=== PATIENT | female | born 1980 | race American Indian/Alaskan Native ===

== ENCOUNTER 2024-07-08 11:46 | Emergency (ER) | payer BC, MEDICAID ==
[2024-07-08] MEDS ORDERED: Sodium Chloride 0.9% 10 ML Syringe FLUSH PRN (11:51)
[2024-07-08 12:12] LABS: BASOPHILS PERCENT AUTO 0.2 % (0.0-1.0); EOSINOPHILS PERCENT AUTO 0.7 % (1.0-3.0); HEMATOCRIT 26.1 % (37.0-47.0); HEMOGLOBIN 8.1 g/dL (12.0-16.0); LYMPHOCYTES PERCENT AUTO 8.3 % (20.5-50.1); MEAN CORPUSCULAR HEMOGLOBIN 28.6 pg (27.0-34.0); MEAN CORPUSCULAR VOLUME 92.2 fL (80-100); MONOCYTES PERCENT AUTO 6.4 % (2-8); NEUTROPHILS PERCENT AUTO 84.4 % (42.2-75.2); PLATELET COUNT,PLT 548 10^3/uL (150-450); RED BLOOD CELL COUNT 2.83 10^6/uL (4.2-5.4)
[2024-07-08 12:17] LABS: APPEARANCE,URINE TURBID (CLEAR); BILIRUBIN,URINE NEGATIVE (NEGATIVE); COLOR,URINE YELLOW (YELLOW); GLUCOSE,URINE 500 (NEGATIVE); KETONES,URINE NEGATIVE (NEGATIVE); LEUKOCYTE ESTERASE,URINE SMALL (NEGATIVE); NITRITE,URINE NEGATIVE (NEGATIVE); OCCULT BLOOD,URINE SMALL (NEGATIVE); PH,URINE 5.5 (5.0-9.0); PROTEIN,URINE 100 (NEGATIVE); UROBILINOGEN,URINE 0.2 mg/dL (0.2-1.0)
[2024-07-08 12:22] LABS: AMPHETAMINES,URINE NEGATIVE (NEGATIVE); BARBITURATES,URINE NEGATIVE (NEGATIVE); BENZODIAZEPINE,URINE NEGATIVE (NEGATIVE); MDMA (ECSTASY), URINE NEGATIVE (NEGATIVE); METHADONE,URINE NEGATIVE (NEGATIVE); METHAMPHETAMINES,URINE POSITIVE (NEGATIVE); OPIATES,URINE NEGATIVE (NEGATIVE); OXYCODONE,URINE NEGATIVE (NEGATIVE); PHENCYCLIDINE,URINE NEGATIVE (NEGATIVE); TCA,URINE NEGATIVE (NEGATIVE)
[2024-07-08 12:33] LABS: BACTERIA,URINE FEW /HPF (0-FEW/HPF); EPITHELIAL CELLS,URINE FEW /HPF (NOT SEEN); MUCUS,URINE FEW /LPF (NOT SEEN); WBC,URINE PACKED /HPF (0-5/HPF)
[2024-07-08 12:38] LABS: LACTIC ACID 0.7 mmol/L (0.4-2.0)
[2024-07-08 12:43] LABS: ALBUMIN 1.7 g/dL (3.4-5.0); BILIRUBIN TOTAL 0.2 mg/dL (0.2-1.0); BUN/CREATININE RATIO 16.1 (No establ ref range); C-REACTIVE PROTEIN 8.65 ng/dL (<=0.50); CALCIUM 8.7 mg/dL (8.5-10.1); CREATININE 1.24 mg/dL (0.55-1.02); EST CRCL DRUG DOSING (CG) 41.27 mL/min; MAGNESIUM 1.9 mg/dL (1.8-2.4); PROTEIN TOTAL,TP 8.3 g/dL (6.4-8.2); T4 FREE 1.16 ng/dL (0.76-1.46); TSH ULTRASENSITIVE 0.47 uIU/mL (0.36-3.74)
[2024-07-08] MEDS: Sodium Chloride 0.9% 1,000 ML IV ONE (12:45)
[2024-07-08 12:50] LABS: ANION GAP 9.8 mEq/L (7-13); POTASSIUM,K 4.8 mmol/L (3.5-5.1)
[2024-07-08 12:51] LABS: A/G RATIO 0.26
[2024-07-08 12:55] LABS: PERCENT FE SATURATION 9.1 % (20.0-50.0)
[2024-07-08] MEDS ORDERED: Iopamidol 612 MG/ML 100 ML Bottle IVPUSH ONE (12:58)
[2024-07-08] MEDS: Piperacillin/Tazobactam 4.5 GM in Sodium Chloride 0.9% 100 ML IV ONE (14:12)
[2024-07-08] MEDS: ferumoxytoL 1,020 MG in Sodium Chloride 0.9% 100 ML IV ONE (14:23)
== END 2024-07-08 15:12 ==
LOC: EEVIPCON 11:46 → DL.ED 11:46
DX: N30.00 Acute cystitis without hematuria (principal); N12 Tubulo-interstitial nephritis, not specified as acute or chronic; D50.9 Iron deficiency anemia, unspecified; E87.1 Hypo-osmolality and hyponatremia; E11.9 Type 2 diabetes mellitus without complications; F15.10 Other stimulant abuse, uncomplicated
CPT/HCPCS: 36415; 74177; 80053; 80305; 81001; 81025; 82272; 82728; 83540; 83550; 83605; 83735; 84439; 84443; 85025; 86140; 87086; 87088; 87186; 96365; 96368; 99284; 99285; J2543; J7030; Q0138

== ENCOUNTER 2024-09-03 12:14 | Emergency (ER) | payer MEDICAID ==
[2024-09-03] MEDS ORDERED: Sodium Chloride 0.9% 10 ML Syringe FLUSH PRN (12:22)
[2024-09-03 12:30] LABS: BASOPHILS PERCENT AUTO 0.2 % (0.0-1.0); EOSINOPHILS PERCENT AUTO 0.7 % (1.0-3.0); HEMATOCRIT 34.9 % (37.0-47.0); HEMOGLOBIN 11.5 g/dL (12.0-16.0); LYMPHOCYTES PERCENT AUTO 7.6 % (20.5-50.1); MEAN CORPUSCULAR HEMOGLOBIN 29.9 pg (27.0-34.0); MEAN CORPUSCULAR VOLUME 90.9 fL (80-100); MONOCYTES PERCENT AUTO 4.9 % (2-8); NEUTROPHILS PERCENT AUTO 86.6 % (42.2-75.2); PLATELET COUNT,PLT 332 10^3/uL (150-450); RED BLOOD CELL COUNT 3.84 10^6/uL (4.2-5.4); WHITE BLOOD CELL COUNT,WBC 8.2 10^3/uL (5.0-10.0)
[2024-09-03 12:45] LABS: ALANINE AMINOTRANSFERASE,ALT 10 U/L (14-59); ALBUMIN 2.7 g/dL (3.4-5.0); ALKALINE PHOSPHATASE 154 U/L (46-116); ASPARTATE AMNIOTRANSFERASE,AST 8 U/L (15-37); BILIRUBIN TOTAL 0.5 mg/dL (0.2-1.0); BLOOD UREA NITROGEN,BUN 32 mg/dL (7-18); BUN/CREATININE RATIO 25.8 (No establ ref range); C-REACTIVE PROTEIN 8.36 ng/dL (<=0.50); CALCIUM 9.6 mg/dL (8.5-10.1); CREATININE 1.24 mg/dL (0.55-1.02); GLUCOSE RANDOM 307 mg/dL (70-99); MAGNESIUM 2.3 mg/dL (1.8-2.4); PROTEIN TOTAL,TP 8.6 g/dL (6.4-8.2)
[2024-09-03 12:48] LABS: LACTIC ACID 0.9 mmol/L (0.4-2.0)
[2024-09-03 12:54] LABS: A/G RATIO 0.46; ANION GAP 11.3 mEq/L (7-13); CARBON DIOXIDE,CO2 28 mmol/L (21-32); CHLORIDE,CL 98 mmol/L (98-107); ESTIMATED GFR 55 mL/min (>=60); POTASSIUM,K 4.3 mmol/L (3.5-5.1); SODIUM,NA 133 mmol/L (136-145)
[2024-09-03] MEDS: Sodium Chloride 0.9% 1,000 ML IV ONE (13:02)
[2024-09-03] MEDS: Iopamidol 612 MG/ML 100 ML Bottle IVPUSH ONE (13:02)
[2024-09-03] MEDS: HYDROmorphone 0.5 MG/0.5 ML Syringe IVPUSH ONE (13:06)
[2024-09-03] MEDS: Acetaminophen 500 MG Tab PO ONE (13:06)
[2024-09-03] MEDS: Ondansetron 4 MG/2 ML SDV IVPUSH ONE (13:06)
[2024-09-03 13:53] LABS: APPEARANCE,URINE CLOUDY (CLEAR); BILIRUBIN,URINE NEGATIVE (NEGATIVE); COLOR,URINE YELLOW (YELLOW); GLUCOSE,URINE 500 (NEGATIVE); KETONES,URINE NEGATIVE (NEGATIVE); LEUKOCYTE ESTERASE,URINE TRACE (NEGATIVE); NITRITE,URINE NEGATIVE (NEGATIVE); OCCULT BLOOD,URINE MODERATE (NEGATIVE); PROTEIN,URINE 100 (NEGATIVE)
[2024-09-03 13:55] LABS: AMPHETAMINES,URINE POSITIVE (NEGATIVE); BARBITURATES,URINE NEGATIVE (NEGATIVE); BENZODIAZEPINE,URINE NEGATIVE (NEGATIVE); MDMA (ECSTASY), URINE NEGATIVE (NEGATIVE); METHADONE,URINE NEGATIVE (NEGATIVE); METHAMPHETAMINES,URINE POSITIVE (NEGATIVE); OPIATES,URINE NEGATIVE (NEGATIVE); OXYCODONE,URINE NEGATIVE (NEGATIVE); PHENCYCLIDINE,URINE NEGATIVE (NEGATIVE); TCA,URINE NEGATIVE (NEGATIVE)
[2024-09-03 14:01] LABS: BACTERIA,URINE FEW /HPF (0-FEW/HPF); EPITHELIAL CELLS,URINE FEW /HPF (NOT SEEN); MUCUS,URINE FEW /LPF (NOT SEEN); RBC,URINE 30-40 /HPF (0-5); WBC,URINE 30-40 /HPF (0-5/HPF)
[2024-09-03 14:02] LABS: AMORPHOUS SEDIMENT,URINE FEW /HPF (NOT SEEN)
[2024-09-03] MEDS: Piperacillin/Tazobactam 3.375 GM in Sodium Chloride 0.9% 100 ML IV ONE (14:51)
[2024-09-03] MEDS ORDERED: Dexamethasone 4 MG/ML SDV IM ONE (15:14)
== END 2024-09-03 16:21 | disposition home or self-care (01) ==
LOC: DL.ED 12:14
DX: N20.0 Calculus of kidney (principal); Z88.5 Allergy status to narcotic agent
CPT/HCPCS: 36415; 51702; 74177; 80053; 80305-QW; 81001; 81025; 83605; 83735; 85025; 86140; 87040; 87086; 96365; 96375; 99284; 99284-25; A9270-GY; J2405; J2543; J7030; Q9967

== ENCOUNTER 2024-09-05 11:59 | Emergency (ER) | payer MEDICAID | END 2024-09-05 12:43 | disposition home or self-care (01) | LOC: DL.ED 11:59 | DX: Z46.6 Encounter for fitting and adjustment of urinary device (principal); Z88.0 Allergy status to penicillin; Z79.899 Other long term (current) drug therapy; Z00.00 Encounter for general adult medical examination without abnormal findings | CPT/HCPCS: 51702; 51798; 99283; 99283-25 ==

== ENCOUNTER 2024-10-16 19:33 | Emergency (ER) | payer MEDICAID ==
[2024-10-16] MEDS: Ketorolac 30 MG/ML SDV IM ONE (20:10)
[2024-10-16 20:36] LABS: APPEARANCE,URINE TURBID (CLEAR); BILIRUBIN,URINE NEGATIVE (NEGATIVE); COLOR,URINE YELLOW (YELLOW); GLUCOSE,URINE 500 (NEGATIVE); KETONES,URINE NEGATIVE (NEGATIVE); LEUKOCYTE ESTERASE,URINE LARGE (NEGATIVE); NITRITE,URINE NEGATIVE (NEGATIVE); OCCULT BLOOD,URINE SMALL (NEGATIVE); PH,URINE 6.5 (5.0-9.0); PROTEIN,URINE >=300 (NEGATIVE); UROBILINOGEN,URINE 0.2 mg/dL (0.2-1.0)
[2024-10-16 20:45] LABS: WBC,URINE PACKED /HPF (0-5/HPF)
[2024-10-16 20:46] LABS: BACTERIA,URINE MANY /HPF (0-FEW/HPF); EPITHELIAL CELLS,URINE FEW /HPF (NOT SEEN); MUCUS,URINE FEW /LPF (NOT SEEN)
[2024-10-16] MEDS: cefTRIAXone 1 GM, Lidocaine 1% 2.1 ML IM ONE (21:07)
[2024-10-16] MEDS: Take Home: Ciprofloxacin HCl 500 MG, 6 Tab Pack PO ONE (21:07)
== END 2024-10-16 21:14 | disposition home or self-care (01) ==
LOC: DL.ED 19:33
DX: N30.00 Acute cystitis without hematuria (principal); Z88.8 Allergy status to other drugs, medicaments and biological substances
CPT/HCPCS: 51702; 81001; 87086; 87088; 87186; 96372; 99284; A9270-GY; J0696; J1885; J2003